=== PATIENT | male | born 1985 | race Two or more races ===

== ENCOUNTER 2020-01-08 10:58 | Emergency (ER) | payer OTHER ==
[~2020-01-08] VITALS: Ht 152.4 cm; Wt 83.9 kg
[2020-01-08] MEDS ORDERED: KETO10TA2 PO (14:21)
== END 2020-01-08 14:28 | disposition home or self-care (01) ==
LOC: ER 10:58
DX: S00.83XA Contusion of other part of head, initial encounter (principal); S50.12XA Contusion of left forearm, initial encounter; S70.02XA Contusion of left hip, initial encounter; W10.8XXA Fall (on) (from) other stairs and steps, initial encounter; Y93.89 Activity, other specified; Y92.59 Other trade areas as the place of occurrence of the external cause; Y99.8 Other external cause status